=== PATIENT | female | born 1930 ===

== ENCOUNTER 2018-05-22 08:22 | Outpatient (CLI) | payer OTHER ==
[~2018-05-22 08:22] MED LIST: AVAPRO300 MG; CARDIZEM CD240 MG; CIPRO750 MG PO; MOTRIN600 MG PO; NAMENDA10 MG; SECTRAL200 MG; SYNTHROID100 MCG
== END 2018-05-22 09:00 | disposition home or self-care (01) ==
LOC: NUCLEAR 08:22
DX: R94.6 Abnormal results of thyroid function studies (principal); E04.2 Nontoxic multinodular goiter
CPT/HCPCS: 78012; A9531

== ENCOUNTER → 2018-05-23 | Outpatient (CLI) | payer OTHER | END | disposition home or self-care (01) | LOC: NUCLEAR 08:00 | DX: R94.6 Abnormal results of thyroid function studies (principal); E04.2 Nontoxic multinodular goiter | CPT/HCPCS: 78013; A9512 ==